=== PATIENT | female | born 1955 | race Caucasian/White ===

== ENCOUNTER 2017-03-31 09:31 | Inpatient (IN) ==
[2017-03-31] MEDS ORDERED: NS 1,000 ML IV ONE (10:01)
[2017-03-31] MEDS: SALINE FLUSH 10ml SYRINGE IVF PRN ×2 (10:15→17:41)
--- NOTE | 2017-03-31 10:19 | Emergency Department Report ---
General Adult HPI - General Chief complaint: Abdominal Pain Stated complaint: constipation Time Seen by Provider: 03/31/17 09:35 Source: patient Mode of arrival: ambulatory Limitations: no limitations - History of Present Illness HPI narrative: 61-year-old female presents to the emergency department with a chief complaint of constipation. Patient states she has been having small infrequent bowel movements over the past week. Patient notes mild generalized lower abdominal discomfort which she describes as a fullness. No radiation. She does not note any exacerbating or remitting factors. She has no other complaints or associated symptoms. She was at home when her symptoms began. Symptoms have been persistent in nature since onset. Denies any trauma, travel, poorly prepared food, or recent antibiotic use. She has not noted any blood in the stool. - Related Data Previous Rx's Medication Instructions Recorded Ciprofloxacin HCl [Cipro] 500 mg PO BIDWM #14 tab 04/02/17 metroNIDAZOLE [Flagyl] 500 mg PO TID #21 tab 04/02/17 Allergies Allergy/AdvReac Type Severity Reaction Status Date / Time No Known Allergies Allergy Verified 03/31/17 09:59 Review of Systems Constitutional: Denies: fever, chills Eyes: Denies: eye pain, vision change ENT: Denies: ear pain, throat pain Cardiovascular: Denies: chest pain, palpitations Respiratory: Denies: cough, dyspnea Gastrointestinal: Reports: abdominal pain. Denies: nausea, vomiting, diarrhea Genitourinary: Denies: urgency, dysuria Musculoskeletal: Denies: back pain, arthralgia Integumentary: Denies: erythema, rash Neurological: Denies: headache, numbness Psychiatric: Denies: anxiety, depression Endocrine: Denies: fatigue, heat or cold intolerance Hematological/Lymphatic: Denies: easy bleeding, easy bruising Allergic/Immunologic: Denies: facial swelling, urticaria PFSH Patient Stated Medical History Hx Kidney Stones Yes Clinic Medical History (Last Reviewed 01/07/17 @ 11:00 by ALE Smith) Acute diverticulitis (Acute Medical) Hypercalcemia (Acute Medical) Diverticulitis (Acute Medical) Hypercalcemia (Acute Medical) Kidney stones (Acute Medical) Surgical History: *Kidney stone retrieval x2. *[place] Teeth Extraction Family History: Family History (Last Reviewed 01/07/17 @ 11:02 by ALE Smith) Father Heart problem Mother Heart problem Unknown Cancer - Social History Smoking status: Current every day smoker Substance use type: does not use Alcohol intake frequency: does not drink Physical Exam - Limitations Limitations: no limitations - General General appearance: alert, in no apparent distress - Normal Exams: Head:: Normocephalic without trauma Eyes:: Pupils are PERRLA w/ EOMI, No scleral icterus, irritation, or foreign bodies noted ENMT:: No facial trauma, nasal exudates, pharyngeal erythema, or exudates are noted Dental: No fractured, loose, or missing teeth noted Neck:: Full range of motion, without adenopathy, JVD, bruits or thyromegaly Chest/Respirations:: Clear all brown, with good airflow, and symmetry bilaterally Cardiovascular:: Regular rate and rhythm, without murmur or gallop, Pulses 2+ all extremities, capillary refill, <2 seconds all extremities Abdomen:: Bowel sounds positive (Soft. Mild generalized tenderness to palpation without rebound or guarding. NO CVAT. ), non-distended, no hepatosplenomegaly, masses or bruits noted Lymphatic:: No lymphadenopathy, or lymphedema noted Musculoskeletal:: No tenderness, or deformity noted, good range of motion, all extremities Integumentary:: No rashes, hives, or bruising noted, hair and nails, without abnormality Neurological:: Patient is alert, and oriented, cranial nerves, motor/sensory/ cerebellar, exams w/o gross deficits, to observation Psychiatric:: Patient exhibits, appropriate attention, emotion and affect Course Vital Signs Temperature 98.3 F 03/31/17 09:34 Pulse Rate 113 H 03/31/17 09:34 Respiratory Rate 22 03/31/17 09:34 Blood Pressure 143/94 H 03/31/17 09:34 Pulse Oximetry 96 03/31/17 09:34 Temperature 97.9 F 04/02/17 07:36 Pulse Rate 70 04/02/17 08:00 Respiratory Rate 18 04/02/17 07:36 Blood Pressure 127/85 04/02/17 07:36 Pulse Oximetry 95 04/02/17 07:36 Medical Decision Making - MDM Narrative Medical decision making narrative: Labs/imaging were reviewed in detail with the patient and questions are answered. Patient declines offered analgesic pain medication in the emergency Department. Patient is given 1 L normal saline intravenously. Patient is discussed with Dr. Bailon and will be admitted to his service in improved condition. Patient was started on Cipro/Flagyl intravenously in the emergency department. Patient is in agreement with the current plan of management. She is admitted to the hospital in improved condition. There are no further orders from accepting physician who is in agreement with the current plan of management. - Differential Diagnosis constipation, UTI, sbo, metabolic process - Lab Data Result diagrams: 04/02/17 04:18 04/02/17 04:18 Lab Results 03/31/17 03/31/17 03/31/17 Range/Units 10:16 10:16 10:16 WBC 15.6 H (4.5-11.0) T/MM3 RBC 3.95 L (4.00-5.20) M/MM3 Hgb 12.8 (12-16) GM/DL Hct 36.7 (36-46) % MCV 92.9 (80-100) UM3 MCH 32.4 (26-34) UUG MCHC 34.9 (31-37) GM/DL RDW Std Deviation 38.0 (36.9-50.2) FL Plt Count 331 (130-400) T/MM3 MPV 10.5 (9.4-12.4) UM3 Immature Gran % (Auto) Not performed Neut % (Auto) Not performed Lymph % (Auto) Not performed [place] % (Auto) Not performed Eos % (Auto) Not performed Baso % (Auto) Not performed Neut # (Auto) Not performed Lymph # (Auto) Not performed [place] # (Auto) Not performed Eos # (Auto) Not performed Baso # (Auto) Not performed Abs Immat Gran (auto) Not performed Neutrophils % (Manual) 70.0 H (33-66) % Band Neutrophils % 1.0 (0-6) % Lymphocytes % (Manual) 16.0 L (23-45) % Monocytes % (Manual) 11.0 H (0-9.0) % Basophils % (Manual) 2.0 (0-2) % Neutrophils # (Manual) 10.9 H (1.8-7.7) T/MM3 Band Neutrophils # 0.2 T/MM3 Lymphocytes # (Manual) 2.5 (1-4.8) T/MM3 Monocytes # (Manual) 1.7 H (0-0.8) T/MM3 Basophils # (Manual) 0.3 H (0-0.2) T/MM3 RBC Morph Comment Normal Turbidity < 20 (0-20) Sodium 138 (134-144) MEQ/L Potassium 3.5 L (3.6-5) MEQ/L Chloride 100 (98-107) MEQ/L Carbon Dioxide 24 (22-30) MEQ/L Anion Gap 14 (5-15) MEQ/L BUN 43.0 H (7-17) MG/DL Creatinine 2.6 H (0.7-1.2) MG/DL GFR Calculation 19 BUN/Creatinine Ratio 17 (6-26) RATIO Glucose 124 H (65-110) MG/DL Calculated Osmolality 278 (261-280) MOSM/KG Calcium 13.1 H* (8.4-10.2) MG/DL Ionized Calcium [place] (1.12-1.32) MMOL/L Total Bilirubin 0.50 (0.20-1.30) MG/DL Icterus Index < 2 (0-7) AST 34 (14-36) U/L ALT 39 (9-52) U/L Alkaline Phosphatase 148 H (38-126) U/L Total Protein 8.2 (6.3-8.2) G/DL Albumin 4.1 (3.5-5.0) G/DL Globulin 4.1 H (2.4-3.6) G/DL Albumin/Globulin Ratio 1.0 L (1.1-2.2) RATIO Lipase 32 (23-300) U/L 25-OH Vitamin D Total (30-100) ng/mL TSH 1.99 (0.47-4.68) MIU/L PTH Intact 8.0 L (8.2-83.5) PG/ML PTH Related Peptide Specimen Hemolysis 42 H (0-25) Ur Collection Type Urine Color (YELLOW) Urine Clarity Urine pH (5.0-8.0) Ur Specific [place] (1.015-1.025) Urine Protein (NEGATIVE) Urine Glucose (UA) (NEGATIVE) Urine Ketones (NEGATIVE) Urine Occult Blood (NEGATIVE) Urine Nitrate (NEGATIVE) Urine Bilirubin (NEGATIVE) Urine Urobilinogen (NORMAL) EU/DL Ur Leukocyte Esterase (NEGATIVE) Urine RBC (0-3) /HPF Urine WBC (0-5) /HPF Ur Squamous Epith Cells Urine Bacteria (NEGATIVE) Ur Culture Indicated? 03/31/17 03/31/1703/31/17 Range/Units 11:33 11:58 11:58 WBC (4.5-11.0) T/MM3 RBC (4.00-5.20) M/MM3 Hgb (12-16) GM/DL Hct (36-46) % MCV (80-100) UM3 MCH (26-34) UUG MCHC (31-37) GM/DL RDW Std Deviation (36.9-50.2) FL Plt Count (130-400) T/MM3 MPV (9.4-12.4) UM3 Immature Gran % (Auto) Neut % (Auto) Lymph % (Auto) [place] % (Auto) Eos % (Auto) Baso % (Auto) Neut # (Auto) Lymph # (Auto) [place] # (Auto) Eos # (Auto) Baso # (Auto) Abs Immat Gran (auto) Neutrophils % (Manual) (33-66) % Band Neutrophils % (0-6) % Lymphocytes % (Manual) (23-45) % Monocytes % (Manual) (0-9.0) % Basophils % (Manual) (0-2) % Neutrophils # (Manual) (1.8-7.7) T/MM3 Band Neutrophils # T/MM3 Lymphocytes # (Manual) (1-4.8) T/MM3 Monocytes # (Manual) (0-0.8) T/MM3 Basophils # (Manual) (0-0.2) T/MM3 RBC Morph Comment Turbidity (0-20) Sodium (134-144) MEQ/L Potassium (3.6-5) MEQ/L Chloride (98-107) MEQ/L Carbon Dioxide (22-30) MEQ/L Anion Gap (5-15) MEQ/L BUN (7-17) MG/DL Creatinine (0.7-1.2) MG/DL GFR Calculation BUN/Creatinine Ratio (6-26) RATIO Glucose (65-110) MG/DL Calculated Osmolality (261-280) MOSM/KG Calcium (8.4-10.2) MG/DL Ionized Calcium [place] 1.57 H (1.12-1.32) MMOL/L Total Bilirubin (0.20-1.30) MG/DL Icterus Index (0-7) AST (14-36) U/L ALT (9-52) U/L Alkaline Phosphatase (38-126) U/L Total Protein (6.3-8.2) G/DL Albumin (3.5-5.0) G/DL Globulin (2.4-3.6) G/DL Albumin/Globulin Ratio (1.1-2.2) RATIO Lipase (23-300) U/L 25-OH Vitamin D Total 12 L (30-100) ng/mL TSH (0.47-4.68) MIU/L PTH Intact (8.2-83.5) PG/ML PTH Related Peptide Cancelled Specimen Hemolysis (0-25) Ur Collection Type Urine, clean catch Urine Color Yellow (YELLOW) Urine Clarity Sl cloudy Urine pH 6.0 (5.0-8.0) Ur Specific [place] 1.010 L (1.015-1.025) Urine Protein Trace A (NEGATIVE) Urine Glucose (UA) Negative (NEGATIVE) Urine Ketones Negative (NEGATIVE) Urine Occult Blood 1+ A (NEGATIVE) Urine Nitrate Negative (NEGATIVE) Urine Bilirubin Negative (NEGATIVE) Urine Urobilinogen 0.2 (NORMAL) EU/DL Ur Leukocyte Esterase 3+ A (NEGATIVE) Urine RBC 3-5 H (0-3) /HPF Urine WBC 50-200 H (0-5) /HPF Ur Squamous Epith Cells 20-50 Urine Bacteria Trace H (NEGATIVE) Ur Culture Indicated? Cult not indicated - Radiology Data CT ABD/PELVIS: Impression: 1. Severe acute sigmoid diverticulitis. Recommend direct visualization after resolution of the acute illness to exclude any underlying lesion or neoplasm. 2. 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 Critical Care Time Critical Care Time: Yes Total Critical Care Time: 47 Attestation: 47 minutes of critical care time was assessed to the patient due to the calcium level of greater than 13. She was given 1 L normal saline intravenously for treatment of hypercalcemia. Patient required complex medical decision-making, repeated assessment at the bedside, and had potential for decompensation. Critical care time was spent treating the patient, documenting the medical record, making telephone calls on the patient be half and updating family. Disposition Clinical Impression: Diverticulitis, Hypercalcemia Disposition: 02 To [facility] [place] Care Condition: Stable Time of Disposition: 11:30 (Admit. Dr. Bailon. ) - Seen By: physician
--- NOTE | 2017-03-31 10:59 | CT Scan Report ---
Indication: ABD Pain PROCEDURE: CT abdomen pelvis wo con: Encounter: Initial Comparison: Renal CT dated October 24, 2013 Technique: Axial CT images were performed through the abdomen and pelvis without intravenous contrast. Coronal and sagittal two-dimensional reformats. Automated Exposure Control and Iterative Reconstruction dose reducing techniques were utilized. Findings: The lung bases are clear. The liver shows a small benign cyst in the right lobe. No contour deforming liver masses. The gallbladder is unremarkable. The spleen, pancreas and adrenal glands are normal. Interval development of diffuse medullary nephrocalcinosis with numerous tiny stones scattered throughout both kidneys. There is no significant hydronephrosis however and no evidence of an obstructing renal or ureteral stone. Scattered small retroperitoneal nodes. Uterus is grossly normal. No free fluid. There is significant inflammation surrounding the mid sigmoid colon with wall thickening. Dense material in the colon could be related to prior oral contrast or ingested medications. No focal or drainable abscess appreciated. No obvious free air. No bowel obstruction. The appendix is normal. Bone windows show mild degenerative change in the spine. Impression: 1. Severe acute sigmoid diverticulitis. Recommend direct visualization after resolution of the acute illness to exclude any underlying lesion or neoplasm. 2. 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 .
[2017-03-31] MEDS ORDERED: MetroNIDAZOLE PB 500 MG/100 ML BAG IV SCH (11:30)
[2017-03-31] MEDS: CIPROFLOXACIN PB 400 MG/200 ML BAG IV SCH ×2 (11:43→23:12)
[2017-03-31] MEDS ORDERED: NS 1,000 ML IV SCH (12:00)
--- NOTE | 2017-03-31 12:03 | History & Physical Report ---
History of Present Illness Date: 03/31/17 Chief complaint: Abdominal pain HPI: Patient is pleasant 61-year-old female who presented to the emergency room today for acute evaluation of abdominal pain and nausea. Acute evaluation did reveal leukocytosis with a white count of 15.6, neutrophils 70, bands 1%. Chemistry panel did reveal critically high calcium at 13.1, sodium 138, potassium 3.5, BUN 43, creatinine 2.6, glucose 128. Lipase was normal at 32. A CT scan of the abdomen and pelvis was performed did reveal severe acute sigmoid diverticulitis as well as medullary nephrocalcinosis. She was given IV fluids and started on Cipro and Flagyl IV for antimicrobial coverage. The hospitalist services were contacted and accepted patient for inpatient admission for further evaluation and treatment. Patient is seen on initial examination while in the emergency room. She is alert , oriented and pleasant. Reports that her symptoms have been ongoing for the past couple of weeks at which time she has noticed intermittent episodes of abdominal pain and cramping, constipation, accompanied with nausea and decreased appetite. 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 She reports she has not had any recent follow-up of this. She does have chronic history of multiple kidney stones requiring lithotripsy. He last had a colonoscopy in 2010, at which time she reports was "normal". Review of Systems All systems PM: 10-point ROS was reviewed, no additional remarkable complaints except - Constitutional Constitutional: Present: anorexia - Gastrointestinal Gastrointestinal: Present: as per HPI, abdominal pain, constipation, nausea PFSH Patient Stated Medical History Pituitary tumor Kidney stones Chronic tobacco dependence Surgical History: Lithotripsy 2. Colonoscopy- 2010 Family History: Family History (Last Reviewed 01/07/17 @ 11:02 by ALE Smith) Father Heart problem Mother Heart problem Unknown Cancer - Social History Smoking status: Current every day smoker Substance use type: does not use Alcohol intake: current Alcohol intake frequency: a few times a month Housing: house Current occupational status: retired Current residence: Apartment/Private Home Social history: NO current PCP. Medications Home Medications Medication Instructions Recorded Confirmed Type No known Home medications [No home 01/07/17 03/31/17 History meds] Allergies Allergy/AdvReac Type Severity Reaction Status Date / Time No Known Allergies Allergy Verified 03/31/17 09:59 Exam Vital Signs: Temperature 98.3 F 03/31/17 09:34 Pulse Rate 85 03/31/17 11:00 Respiratory Rate 22 03/31/17 09:34 Blood Pressure 142/74 H 03/31/17 11:44 Pulse Oximetry 96 03/31/17 11:00 Height/Weight/BMI: Height 1.63 m Weight 76.9 kg - Constitutional Present: no acute distress, well nourished, well developed - Routine HEENT Exam Eye: Present: EOMI ENT: Present: mucous membranes moist, dentition normal - Routine Neck Exam Present: full ROM - Routine Respiratory Exam Present: CTA bilaterally. Absent: wheezes - Routine Cardiovascular Exam Present: RRR, S1, S2. Absent: murmur - Routine Abdominal Exam Present: soft, tenderness (diffuse generalized tenderness on palpation), non distended. Absent: normoactive bowel sounds (hypoactive) - Routine Extremities Exam Present: full ROM, normal capillary refill - Routine Back/Spine/Pelvis Exam Back/Spine: Present: full ROM - Routine Skin Exam Present: intact, dry, warm - Routine Neurological Exam Present: alert, oriented X3, CN II-XII intact, moving all extremities - Routine Psychiatric Exam Present: normal affect, cooperative Results - Labs CBC & Chem 7: 03/31/17 10:16 03/31/17 10:16 Assessment and Plan (1) Acute diverticulitis Current visit: Yes Status: Acute (2) Hypercalcemia Current visit: Yes Status: Acute Assessment and Plan: Impression Acute Diverticulitis Hypercalcemia- POA JOSEFINA- 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 Will continue at NS with 20 KCL at 200 ml/hr for ongoing hydration. Hopeful that this will help with acute kidney injury and elevated creatinine. Will need to monitor urinary output carefully. Obtain EKG Place patient cardiac telemetry to monitor for bradycardia or other dysrhythmias that could be caused from the hypercalcemia. Continue with IV Flagyl and Cipro scheduled for treatment of acute diverticulitis. Obtain urinalysis on admission. Zofran available as needed for nausea SCDs to bilateral lower extremity for DVT prophylaxis. Will recheck CBC and BMP tomorrow morning to follow blood counts, electrolytes and renal function Further orders and plan of care discussed with attending, . S: Pt reports constipation, fatigue and weakness for the last few weeks. Denies any vomiting, f/c, cp or sob. Does report some nausea. Denies weight loss or night sweats. Also reports loss of appetite. O: Gen: alert and oriented Cards: RRR and no murmurs Lung: CTAB, no wheezes Ext: no clubbing or edema Skin: dry, intact, no rash A/P: Hypercalcemia -Will order PTH to determine etiology -Possibly related to malignancy as pt may have colon mass causing constipation and diverticulitis -Will treat with IV fluids, ZA, monitor urine output Diverticulitis -Abx, IV fluids, Bowel rest JOSEFINA -Likely pre-renal, oder FeNa, UA, IV fluids Hospital Course Summary Disclaimer: The visit summary below is not to be considered part of the above Progress Note. 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 Will continue at NS with 20 KCL at 200 ml/hr for ongoing hydration. Hopeful that this will help with acute kidney injury and elevated creatinine. Will need to monitor urinary output carefully. Obtain EKG Place patient cardiac telemetry to monitor for bradycardia or other dysrhythmias that could be caused from the hypercalcemia. Continue with IV Flagyl and Cipro scheduled for treatment of acute diverticulitis. Obtain urinalysis on admission. Zofran available as needed for nausea SCDs to bilateral lower extremity for DVT prophylaxis. Will recheck CBC and BMP tomorrow morning to follow blood counts, electrolytes and renal function Further orders and plan of care discussed with attending, .
[2017-03-31] MEDS ORDERED: ONDANSETRON 4 MG/2 ML INJECTION IVP PRN (12:19)
[2017-03-31] MEDS ORDERED: POTASSIUM CHLORIDE INJ 20 MEQ in NS 1,000 ML IV SCH (12:20)
[2017-03-31 12:29] VITALS: BMI 28.3
[2017-03-31] MEDS: NS with KCL 20 mEq 1,000 ML IV SCH ×2 (14:36→23:09)
[2017-03-31] MEDS ORDERED: ZOLEDRONIC ACID 4 MG/100 ML BAG IV ONE (15:48)
--- NOTE | 2017-03-31 15:57 | XRay Report ---
INDICATION: Smoker, R/O mass PROCEDURE: CHEST 2-VIEWS UPRIGHT (PA & LAT) Encounter: Initial COMPARISON: None FINDINGS: The lungs are clear without evidence of focal abnormal airspace opacity. There is no pleural effusion or pneumothorax. The heart size, mediastinal contours and pulmonary vascularity are within normal limits. Mild degenerative change in the spine. IMPRESSION: No acute cardiopulmonary disease. .
[2017-03-31] MEDS: MetroNIDAZOLE PB 500 MG/100 ML BAG IV SCH (20:52)
[2017-04-01] MEDS: CIPROFLOXACIN PB 400 MG/200 ML BAG IV SCH ×3 (01:06→23:33)
[2017-04-01] MEDS: MetroNIDAZOLE PB 500 MG/100 ML BAG IV SCH ×3 (02:59→18:15)
[2017-04-01] MEDS: NS with KCL 20 mEq 1,000 ML IV SCH ×6 (03:24→23:32)
[2017-04-01] MEDS ORDERED: MetroNIDAZOLE PB 500 MG/100 ML BAG IV ONE (07:00)
[2017-04-01 08:10] VITALS: RESP 18
[2017-04-01] MEDS: POTASSIUM CHLORIDE PREMIX 10 MEQ/100 ML BAG IV SCH ×4 (08:39→15:58)
--- NOTE | 2017-04-01 10:38 | Progress Note ---
<Isis Lackey V - Last Filed: 04/01/17 10:32> - Date 04/01/17 Subjective: Inna is seen this mroning in follow up. She reports feeling improved today with decreased abdominal pain. She is tolerating PO intake however has no appetite. Denies shortness of breath or dysuria. She remains afebrile and vitals are stable. Objective Vital signs: Temperature 98.4 F 04/01/17 04:31 Pulse Rate 71 04/01/17 08:10 Respiratory Rate 18 04/01/17 08:10 Blood Pressure 125/81 04/01/17 08:10 Pulse Oximetry 94 04/01/17 08:10 Height/Weight/BMI: Height 1.65 m Weight 79.3 kg Body Mass Index 28.3 - Constitutional Present: no acute distress, well nourished, well developed - Routine HEENT Exam Eye: Present: EOMI ENT: Present: mucous membranes moist, dentition normal - Routine Respiratory Exam Present: CTA bilaterally. Absent: wheezes - Routine Cardiovascular Exam Present: RRR. Absent: murmur - Routine Abdominal Exam Present: soft, normoactive bowel sounds, non distended. Absent: tenderness - Routine Extremities Exam Present: normal capillary refill - Routine Back/Spine/Pelvis Exam Back/Spine: Present: full ROM - Routine Skin Exam Present: intact, dry, warm - Routine Neurological Exam Present: alert, oriented X3, CN II-XII intact - Routine Lymphatic Exam Lymphatic: Absent: adenopathy - Routine Psychiatric Exam Present: normal affect, cooperative Results - Labs CBC & Chem 7: 04/01/17 04:45 04/01/17 04:45 Assessment and Plan (1) Acute diverticulitis Current visit: Yes Status: Acute (2) Hypercalcemia Current visit: Yes Status: Acute Assessment and Plan: Impression Acute Diverticulitis Hypercalcemia- POA JOSEFINA- Elevated 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 Compressed Gas Equipment Mechanic remains elelvated at 2.5 Continues on IV fluids for hydration Calcium level started to trend down, Today at 10.3 Received one time dose of Zometa to help with hypercalcemia. Bowel rest and IV antibiotic including Flagyl and Cipro Continues on IV fluids for hydration Continue to follow daily labs Hospital Course Summary Disclaimer: The visit summary below is not to be considered part of the above Progress Note. 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 Will continue at NS with 20 KCL at 200 ml/hr for ongoing hydration. Hopeful that this will help with acute kidney injury and elevated creatinine. Will need to monitor urinary output carefully. Obtain EKG Place patient cardiac telemetry to monitor for bradycardia or other dysrhythmias that could be caused from the hypercalcemia. Continue with IV Flagyl and Cipro scheduled for treatment of acute diverticulitis. Obtain urinalysis on admission. Zofran available as needed for nausea SCDs to bilateral lower extremity for DVT prophylaxis. Will recheck CBC and BMP tomorrow morning to follow blood counts, electrolytes and renal function Further orders and plan of care discussed with attending, . 04/01/17-Plan FENA score indicates likely Pre-renal at 07%. Compressed Gas Equipment Mechanic remains elelvated at 2.5 Continues on IV fluids for hydration Calcium level started to trend down, Today at 10.3 Received one time dose of Zometa to help with hypercalcemia. Bowel rest and IV antibiotic including Flagyl and Cipro Continues on IV fluids for hydration Continue to follow daily labs <Trudy Bailon B - Last Filed: 04/01/17 12:02> - Date 04/01/17 Objective Vital signs: Temperature 98.4 F 04/01/17 04:31 Pulse Rate 71 04/01/17 08:10 Respiratory Rate 18 04/01/17 08:10 Blood Pressure 125/81 04/01/17 08:10 Pulse Oximetry 94 04/01/17 08:10 Height/Weight/BMI: Height 5 ft 5 in Weight 79.3 kg Body Mass Index 28.3 Results - Labs CBC & Chem 7: 04/01/17 04:45 04/01/17 04:45 Assessment and Plan (1) Acute diverticulitis Current visit: Yes Status: Acute (2) Hypercalcemia Current visit: Yes Status: Acute Assessment and Plan: S: Pt reports feeling a little better. Abd pain is better. Pt passing gas but no BMs yet. Denies any n/v/d, f/c, cp or sob. A/P: Hypercalcemia improving. Abd pain is also improving. Low pth indicates non PTH mediated hypercalcemia, ordered 1,25 and 25 vit d, rPTH to evaluate for other causes. CXR was unremarkable. Cr not improved, will cont. iv fluids but likely ckd component as CT shows some chronic changes on kidneys. Cont. abx tx for diverticulitis, will be gentle with advancing diet and avoid aggressive bowel regimens. Will need colonoscopy in 4-8 weeks after resolution of diverticulitis. Once pt starts tolerating PO intake better, will try to start discharge planning. I saw the pt independently and case was discussed with PA/PALLIATIVE NURSE. I agree with exam and plan as stated above. Hospital Course Summary Disclaimer: The visit summary below is not to be considered part of the above Progress Note.
[2017-04-01] MEDS: LR 1,000 ML IV SCH (23:32)
[2017-04-02] MEDS: MetroNIDAZOLE PB 500 MG/100 ML BAG IV SCH ×2 (03:41→10:02)
[2017-04-02] MEDS: NS with KCL 20 mEq 1,000 ML IV SCH (05:14)
[2017-04-02 07:37] VITALS: BP 127/85; TEMP 97.9; O2SAT 95
[2017-04-02 08:24] VITALS: PULSE 70
[2017-04-02] MEDS: LR 1,000 ML IV SCH (09:37)
[2017-04-02] MEDS ORDERED: INFLUENZA VAC QIV 2017-18 (Fluarix*)(>=3yo) 0.5ml IM ONE (10:00)
--- NOTE | 2017-04-02 10:32 | Discharge Summary ---
<Isis Lackey V - Last Filed: 04/02/17 10:27> Discharge Information Date of admission: 03/31/17 12:11 Anticipated date of discharge: 04/02/17 Attending Physician: Trudy Bailon MD Primary care physician: Dr Angelita Abreu Consults: None - Discharge Diagnosis (1) Acute diverticulitis Status: Acute (2) Hypercalcemia Status: Acute Acute Diverticulitis Hypercalcemia- POA UTI JOSEFINA- Elevated Disability Rater POA- 2.6 Hypokalemia- POA- 3.5 Hx of kidney stones Chronic tobacco dependence - Procedures Procedures: None - Laboratory Labs: 04/02/17 04:18 04/02/17 04:18 Laboratory Tests 03/31/17 11:58 Ionized Calcium Kody 1.57 H Laboratory Tests 04/01/17 08:24 Ionized Calcium Kody 1.37 H Laboratory Tests 03/31/17 10:16 PTH Intact 8.0 L Laboratory Tests 03/31/17 11:58 25-OH Vitamin D Total 12 L Laboratory Tests 03/31/17 16:20 Ur Random Creatinine 81.6 - Microbiology Microbiology 03/31/17 11:33 Urine, Voided (Cc/notcc) Urine Culture - Final- Gram Positive Williams - Radiology Radiology: 03/31/17- Ct Abd/Pel- Impression: 1. Severe acute sigmoid diverticulitis. Recommend direct visualization after resolution of the acute illness to exclude any underlying lesion or neoplasm. 2. 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 03/31/17- Chest Xray- No acute cardiopulmonary disease - Pathology None History of Present Illness HPI: Patient is pleasant 61-year-old female who presented to the emergency room today for acute evaluation of abdominal pain and nausea. Acute evaluation did reveal leukocytosis with a white count of 15.6, neutrophils 70, bands 1%. Chemistry panel did reveal critically high calcium at 13.1, sodium 138, potassium 3.5, BUN 43, creatinine 2.6, glucose 128. Lipase was normal at 32. A CT scan of the abdomen and pelvis was performed did reveal severe acute sigmoid diverticulitis as well as medullary nephrocalcinosis. She was given IV fluids and started on Cipro and Flagyl IV for antimicrobial coverage. The hospitalist services were contacted and accepted patient for inpatient admission for further evaluation and treatment. Patient is seen on initial examination while in the emergency room. She is alert , oriented and pleasant. Reports that her symptoms have been ongoing for the past couple of weeks at which time she has noticed intermittent episodes of abdominal pain and cramping, constipation, accompanied with nausea and decreased appetite. 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 She reports she has not had any recent follow-up of this. She does have chronic history of multiple kidney stones requiring lithotripsy. He last had a colonoscopy in 2010, at which time she reports was "normal". Objective Vital signs: Temperature 97.9 F 04/02/17 07:36 Pulse Rate 70 04/02/17 08:00 Respiratory Rate 18 04/02/17 07:36 Blood Pressure 127/85 04/02/17 07:36 Pulse Oximetry 95 04/02/17 07:36 Height/Weight/BMI: Height 1.65 m Weight 80.2 kg Body Mass Index 28.3 - Constitutional Present: no acute distress, well nourished, well developed - Routine HEENT Exam Eye: Present: EOMI ENT: Present: mucous membranes moist, dentition normal - Routine Respiratory Exam Present: CTA bilaterally. Absent: wheezes - Routine Cardiovascular Exam Present: RRR, S1, S2. Absent: murmur - Routine Abdominal Exam Present: soft, normoactive bowel sounds, non distended. Absent: tenderness - Routine Extremities Exam Present: full ROM, pulses intact - Routine Back/Spine/Pelvis Exam Back/Spine: Present: full ROM - Routine Skin Exam Present: intact, dry, warm - Routine Neurological Exam Present: alert, oriented X3, CN II-XII intact, moving all extremities - Routine Lymphatic Exam Lymphatic: Absent: adenopathy - Routine Psychiatric Exam Present: normal affect, cooperative Hospital Course This is a general summary of the patient's hospital course. For more details refer to the complete medical record. Hospital course: 03/31/17 Impression Acute Diverticulitis Hypercalcemia- POA JOSEFINA- Elevated Disability Rater POA- 2.6 Hypokalemia- POA- 3.5 Hx of kidney stones Chronic tobacco dependence Plan Admit patient to inpatient under the care of Dr Bailon for acute diverticulitis and Hypercalcemia Will check PTH, TSH and ionized calcium on admission to begin acute workup for Hypercalcemia Patient did receive 1 liter of IV normal saline while in the emergency room. Will continue at with 20 KCL at 200 ml/hr for ongoing hydration. Hopeful that this will help with acute kidney injury and elevated creatinine. Will need to monitor urinary output carefully. Obtain EKG Place patient cardiac telemetry to monitor for bradycardia or other dysrhythmias that could be caused from the hypercalcemia. Continue with IV Flagyl and Cipro scheduled for treatment of acute diverticulitis. Obtain urinalysis on admission. Zofran available as needed for nausea SCDs to bilateral lower extremity for DVT prophylaxis. Will recheck CBC and BMP tomorrow morning to follow blood counts, electrolytes and renal function Further orders and plan of care discussed with attending, . 04/01/17-Plan FENA score indicates likely Pre-renal at 07%. Disability Rater remains elevated at 2.5 Continues on IV fluids for hydration Calcium level started to trend down, Today at 10.3 Received one time dose of Zometa to help with hypercalcemia. Bowel rest and IV antibiotic including Flagyl and Cipro Continues on IV fluids for hydration Continue to follow daily labs 04/02/17- Discharge Inna is overall doing well. She has had not abdominal pain or nausea since admitted. Her appetite has been diminished, however, is starting to improve. She is quite eager to be discharged home and overall appears to be stable. She will be discharged on Cipro and Flagyl for 7 additional days for treatment of acute diverticulitis. Her urine culture did grow Gram positive cocci is without sensitivity. This should be sensitive to Cipro. Patient is planning to establish care with Dr. Abreu at [facility]. Dr. Abreu is planning to schedule patient to be seen on Thursday 04/05. Patient was instructed to call the office at 8 a.m. for appointment time. Patient will only close follow-up for further workup as there is concerned there may be an underlying malignancy. Will need a colonoscopy once acute diverticulitis process has resolved. Importance of follow-up and plan of care discussed in depth with patient at the bedside. She agrees with plan. She is discharged in stable condition with information regarding diverticulitis and diet. Time spent with patient: discharge greater than 30 minutes Discharge Plan - Discharge Disposition Discharge Date: 04/02/17 Disposition: 01 Discharged Home, Self-Care *Condition: Stable Reason For Visit (Visit label in EMR): Hypercalcemia, Diverticulitis - Discharge Medications *Discharge Medications: New Ciprofloxacin HCl [Cipro] 500 mg PO BIDWM #14 tab metroNIDAZOLE [Flagyl] 500 mg PO TID #21 tab - Discharge Packet/Instructions *Diet: Regular *Activity: Regular activity *Pain Management/Treatment: Tylenol as needed for pain *Wound Care: None Additional Instructions: Call [facility]- [phone] wednesday morning and tell them Dr Abreu said she will get you in same day. It is important to continue on Cipro and Flagyl as directed for 7 more days. Eat small bland meals and advance as tolerated. Drink 6-8 large glasses of water daily. Tylenol as needed for pain *Expected Signs/Symptoms: Improvement of abdominal pain *Notify Physician if: Fever, Severe abdominal pain, Vomiting *During Business Hours Contact: Contact [facility] at [phone] *After Business Hours Contact: Present to the ER *Pending Lab/Results: Follow up w/your PCP - Referrals/Follow Up *Referrals/Follow Up: Angelita Abreu MD [Physician] - (Call [facility] wednesday to be see by Dr Abreu same day) - Patient Handouts Patient Handouts: Diverticulitis (GEN) - Dismissal Complete Discharge Instructions are:: Complete <Trudy Bailon - Last Filed: 04/02/17 14:25> Discharge Information Date of admission: 03/31/17 12:11 Attending Physician: Trudy Bailon MD - Discharge Diagnosis (1) Acute diverticulitis Status: Acute (2) Hypercalcemia Status: Acute - Laboratory Labs: 04/02/17 04:18 04/02/17 04:18 Objective Vital signs: Temperature 97.9 F 04/02/17 07:36 Pulse Rate 70 04/02/17 08:00 Respiratory Rate 18 04/02/17 07:36 Blood Pressure 127/85 04/02/17 07:36 Pulse Oximetry 95 04/02/17 07:36 Height/Weight/BMI: Height 5 ft 5 in Weight 80.2 kg Body Mass Index 28.3 Hospital Course This is a general summary of the patient's hospital course. For more details refer to the complete medical record.
[2017-04-02] MEDS: CIPROFLOXACIN PB 400 MG/200 ML BAG IV SCH (10:54)
[2017-04-02] MEDS ORDERED: INFLUENZA VAC. INJ. ADMIN CHARGE INJ ONE (12:39)
== END 2017-04-02 12:40 | disposition home or self-care (01) | DRG 392 ==
LOC: ED 09:31 → MED 12:11
PROVIDERS: ADMIT Internal Medicine; ATTEND Internal Medicine